=== PATIENT | male | born 1955 | race Two or more races ===

== ENCOUNTER 2016-12-23 13:56 | Emergency (ER) | payer MEDICAID, OTHER ==
[2016-12-23] MEDS ORDERED: Sodium Chloride 0.9% 10 ML Syringe FLUSH PRN (14:25)
[2016-12-23] MEDS ORDERED: HYDROmorphone 2 MG/ML Syringe IVPUSH ONE (14:25)
[2016-12-23] MEDS ORDERED: Ondansetron 4 MG/2 ML SDV IVPUSH ONE (14:25)
[2016-12-23] MEDS ORDERED: Sodium Chloride 0.9% 2.5 ML Syringe FLUSH PRN (14:25)
[2016-12-23] MEDS ORDERED: Sodium Chloride 0.9% 1,000 ML IV SCH (14:30)
--- NOTE | 2016-12-23 14:39 | EDM.PDOC ---
ED HPI GENERAL MEDICAL PROBLEM - General Chief Complaint: Gastrointestinal Problem Stated Complaint: ABDIMINAL PAIN Time Seen by Provider: 12/23/16 14:26 Source of Information: Reports: Patient History Limitations: Reports: No Limitations - History of Present Illness INITIAL COMMENTS - FREE TEXT/NARRATIVE: HISTORY AND PHYSICAL: History of present illness: Patient is a 61-year-old male who presents to the emergency room today with the understanding that he would be evaluated and treated by Dr. Lui for an incarerated hernia. Patient reports he has had this hernia for approximately 3 years. He has seen a surgeon in the past he told it would be repair for cosmetic purposes only. Yesterday he started having increased nausea with dry heaving, started to have abdominal pain near the umbilicus. Pain was not alleviated and presented to [facility] clinic in [facility]. At the clinic he had lab work completed in the two-view abdominal x-ray. Patient drove himself by private vehicle to our emergency room. Upon arrival patient is guarding his abdomen where there is an obvious large hernia which is the size of a basketball. She denies any chest pain, shortness of breath, fever, chills. Said he has had regular bowel pattern and urinating without difficulty. Last bowel movement was approximately 1:30 this morning and reports it was large loose stool. Last ate yesterday evening and drank some water approximately 2 hours ago. Patient has a past medical history of all obstruction, cardiomyopathy, COPD, CAD , reticulocyte valve replacement, pneumonia, hypertension, hyperlipidemia, proximal atrial fibrillation, aortic valve stenosis, systolic heart failure, and ventricular tachycardia Review of systems: As per history of present illness and below otherwise all systems reviewed and negative. Past medical history: As per history of present illness and as reviewed below otherwise noncontributory. Surgical history: As per history of present illness and as reviewed below otherwise noncontributory. Social history: No reported history of drug or alcohol abuse. Family history: As per history of present illness and as reviewed below otherwise noncontributory. Physical exam: Gen.: Nontoxic appearing 61-year-old male who appears in mild distress. Able to speak in full sentences without shortness of breath. HEENT: Atraumatic, normocephalic, pupils reactive, negative for conjunctival pallor or scleral icterus, mucous membranes moist, throat clear, neck supple, nontender, trachea midline. Lungs: Clear to auscultation, breath sounds equal bilaterally, chest nontender. Heart: S1S2, regular, negative for clicks, rubs, or JVD. Abdomen: Large abdominal hernia noted which is midline and the approximate size of a basketball. This is soft to palpation and more firm going towards the umbilicus. Patient reports the umbilicus area is tender to palpation. Negative for masses. Negative for costovertebral tenderness. Pelvis: Stable nontender. Genitourinary: Deferred. Rectal: Deferred. Extremities: Atraumatic, negative for cords or calf pain. Neurovascular unremarkable. Neuro: Awake, alert, oriented. Cranial nerves II through XII unremarkable. Cerebellum unremarkable. Motor and sensory unremarkable throughout. Exam nonfocal. 1430- Dr. Mata was paged at this time. Patient told the nursing staff that he has not taking any of his cardiac medications for several months. Instead he uses marijuana 2-3 times daily. 1515: Dr. Mata has been in the ER evaluating the patient and discussing care plan. He would like to perform a CT scan of the abdomen and pelvis with contrast and reevaluate transfer/disposition with that results. Patient has been made aware of that. Dr. Mata will do a formal consult on this patient as well. 1620- Dr. Mata was informed that the CT shows some free air. Dr. Mata reviewed the CT himself with Dr. Betancourt. According to Dr. Mata he offered to operate here, the patient states he prefers to go to [place] and will be flown there for further care. Please see Dr. Mata's dictation/note for further information. Dr. Mata will speak with the accepting surgeon. We will help facilitate transfer. IV Levaquin and Flagyl have been ordered per Dr. Mata's request Diagnostics: Sending facility ([facility]) did a CBC, CMP, UA, amylase, lipase and a 2 view abdominal x-ray prior to patients arrival- these diagnostics were reviewed by me. CT scan of the abdomen and pelvis Therapeutics: IV fluid at 125 MLS per hour, Zofran, Dilaudid Levaquin and Flagyl Impression: Incarcerated hernia with perforation Definitive disposition and diagnosis as appropriate pending reevaluation and review of above. Duration: Chronic (3 years), Getting Worse (Since yesterday afternoon) Abdomen Pain Score (Numeric/FACES): 8 - Related Data Allergies Allergy/AdvReac Type Severity Reaction Status Date / Time No Known Allergies Allergy Verified 12/23/16 14:11 Home Meds: Home Meds Aspirin 81 mg PO 12/23/16 [History] Blackseed Oil 800 mg 12/23/16 [History] ED ROS GENERAL - Review of Systems Review Of Systems: ROS reveals no pertinent complaints other than HPI. ED EXAM, GENERAL - Physical Exam Exam: See Below (See dictation) Course - Vital Signs Last Recorded V/S: Last Vital Signs Temp 37.3 C 12/23/16 16:27 Pulse 88 12/23/16 16:27 Resp 16 12/23/16 16:27 BP 148/91 H 12/23/16 16:27 Pulse Ox 95 12/23/16 16:27 - Orders/Labs/Meds Orders: Active Orders 24 hr Category Date Time Status Cardiac Monitoring [RC] . DIRECTED Care 12/23/16 14:24 Active EKG Documentation Completion [RC] STAT Care 12/23/16 14:24 Active Notify Provider Consults [RC] ASDIRECTED Care 12/23/16 15:23 Active Oxygen Therapy, ED [RC] ASDIRECTED Care 12/23/16 14:24 Active Consult to Physician [CONS] Stat Cons 12/23/16 15:23 Active Levofloxacin/Dextrose 5%-Water [Levaquin in D5W 500 MG/ Med 12/23/16 16:39 Ordered 100 ML] 500 mg Premix Bag 1 bag IV ONETIME Sodium Chloride 0.9% [Normal Saline] 1,000 ml Med 12/23/16 14:30 Active IV ASDIRECTED Sodium Chloride 0.9% [Saline Flush] Med 12/23/16 14:25 Active 10 ml FLUSH ASDIRECTED PRN Sodium Chloride 0.9% [Saline Flush] Med 12/23/16 14:25 Active 2.5 ml FLUSH ASDIRECTED PRN metroNIDAZOLE/Normal Saline [Flagyl 500 MG in NS 100 ML Med 12/23/16 16:39 Ordered ] 500 mg Premix Bag 1 bag IV ONETIME Saline Lock Insert [OM.PC] Stat Oth 12/23/16 14:23 Ordered Medication Orders Sodium Chloride (Normal Saline) 1,000 mls @ 125 mls/hr IV ASDIRECTED [facility] Last Admin: 12/23/16 14:54 Dose: 125 mls/hr Sodium Chloride (Saline Flush) 10 ml FLUSH ASDIRECTED PRN PRN Reason: Keep Vein Open Sodium Chloride (Saline Flush) 2.5 ml FLUSH ASDIRECTED PRN PRN Reason: Keep Vein Open Meds: Medications Generic Name Dose Route Start Last Admin Trade Name Freq PRN Reason Stop Dose Admin Sodium Chloride 1,000 mls @ 125 mls/hr 12/23/16 14:30 12/23/16 14:54 Normal Saline IV 125 mls/hr ASDIRECTED LASHAY Administration Sodium Chloride 10 ml 12/23/16 14:25 Saline Flush FLUSH ASDIRECTED PRN Keep Vein Open Sodium Chloride 2.5 ml 12/23/16 14:25 Saline Flush FLUSH ASDIRECTED PRN Keep Vein Open Discontinued Medications Generic Name Dose Route Start Last Admin Trade Name Freq PRN Reason Stop Dose Admin Hydromorphone HCl 1 mg 12/23/16 14:25 12/23/16 14:49 Dilaudid IVPUSH 12/23/16 14:26 1 mg ONETIME ONE Administration Iopamidol 100 ml 12/23/16 15:59 12/23/16 16:02 Isovue Multipack-370 (76%) IVPUSH 12/23/16 16:00 100 ml ONETIME STA Administration Ondansetron HCl 4 mg 12/23/16 14:25 12/23/16 14:48 Zofran IVPUSH 12/23/16 14:26 4 mg ONETIME ONE Administration Departure - Departure Time of Disposition: 16:44 Disposition: DC/Tfer to Acute Hospital 02 Clinical Impression: Incarcerated hernia - Discharge Information Referrals: PCP,None [Primary Care Provider] - Forms: ED Department Discharge - My Orders Last 24 Hours: My Active Orders 12/23/16 14:23 Saline Lock Insert [OM.PC] Stat 12/23/16 14:24 Cardiac Monitoring [RC] . DIRECTED EKG Documentation Completion [RC] STAT Oxygen Therapy, ED [RC] ASDIRECTED 12/23/16 14:25 Sodium Chloride 0.9% [Saline Flush] 10 ml FLUSH ASDIRECTED PRN Sodium Chloride 0.9% [Saline Flush] 2.5 ml FLUSH ASDIRECTED PRN 12/23/16 14:30 Sodium Chloride 0.9% [Normal Saline] 1,000 ml IV ASDIRECTED 12/23/16 15:23 Notify Provider Consults [RC] ASDIRECTED Consult to Physician [CONS] Stat 12/23/16 16:39 Levofloxacin/Dextrose 5%-Water [Levaquin in D5W 500 MG/100 ML] 500 mg Premix Bag 1 bag IV ONETIME metroNIDAZOLE/Normal Saline [Flagyl 500 MG in NS 100 ML] 500 mg Premix Bag 1 bag IV ONETIME - Assessment/Plan Last 24 Hours: My Active Orders 12/23/16 14:23 Saline Lock Insert [OM.PC] Stat 12/23/16 14:24 Cardiac Monitoring [RC] . DIRECTED EKG Documentation Completion [RC] STAT Oxygen Therapy, ED [RC] ASDIRECTED 12/23/16 14:25 Sodium Chloride 0.9% [Saline Flush] 10 ml FLUSH ASDIRECTED PRN Sodium Chloride 0.9% [Saline Flush] 2.5 ml FLUSH ASDIRECTED PRN 12/23/16 14:30 Sodium Chloride 0.9% [Normal Saline] 1,000 ml IV ASDIRECTED 12/23/16 15:23 Notify Provider Consults [RC] ASDIRECTED Consult to Physician [CONS] Stat 12/23/16 16:39 Levofloxacin/Dextrose 5%-Water [Levaquin in D5W 500 MG/100 ML] 500 mg Premix Bag 1 bag IV ONETIME metroNIDAZOLE/Normal Saline [Flagyl 500 MG in NS 100 ML] 500 mg Premix Bag 1 bag IV ONETIME
[2016-12-23] MEDS ORDERED: Iopamidol 755 MG/ML 500 ML Multipack Bottle IVPUSH STA (15:59)
--- NOTE | 2016-12-23 16:32 | CT ---
CT of the abdomen and pelvis with contrast. HISTORY: Pain TECHNIQUE: Axial CT images were obtained of the abdomen and pelvis following administration of 100 mL of Isovue-370 in the right antecubital fossa without complication. Coronal and sagittal reconstructi ons obtained. FINDINGS: There is atelectasis within the right middle lobe. The liver, spleen, adrenal glands, and pancreas appear normal. The gallbladder is normal. There is no bulky retroperitoneal lymphadenopathy or abdominal ascites. The kidneys enhance and function symmetrically. Mild prominence of the left renal pelvis and calyces extending to the UPJ. There is diastases of the abdominal rectus musculature. There are however prominently dilated loops o f colon within the region of the right wrist is with multiple small pockets of free air noted. Exact source of free air cannot be determined however likely originates from the dilated colon. There is na rrowing of the colon adjacent to the dilated loops, however this does not appear directly related to the diastases and may represent underlying lesions. The distal colon is predominantly decompressed. A nastomosis sutures are also noted within the right lower quadrant. The urinary bladder is normal. Tra ce free pelvic fluid. No bulky pelvic lymphadenopathy. Prostate is mildly prominent. No suspicious osseous abnormalities identified. IMPRESSION: 1. Probable closed loop mid colonic obstruction within the region of the diastases of the abdominal m usculature, on the right. There is a moderate amount of free air suggesting perforation. There appear s to be 2-lead points along the right aspect of the abdomen which may be secondary to adhesions. 2. Mild prominence of the of the left renal collecting system to the UPJ.
[2016-12-23] MEDS ORDERED: metroNIDAZOLE/Normal Saline 500 MG in Premix Bag 1 BAG IV ONE (16:39)
[2016-12-23] MEDS ORDERED: Levofloxacin/Dextrose 5%-Water 500 MG in Premix Bag 1 BAG IV ONE (16:39)
[2016-12-23] MEDS ORDERED: Lactated Ringers 1,000 ML IV SCH (16:45)
[2016-12-23 17:28] VITALS: BP 146/87
--- NOTE | 2016-12-23 23:44 | CONS ---
DATE OF CONSULTATION: 12/23/2016 DATE OF : 1955 PRIMARY CARE PHYSICIAN: None PCP HISTORY OF PRESENT ILLNESS: The patient is a 61-year-old gentleman, who was seen in outside facility for incisional hernia with pain. The patient remarked that patient had this incisional hernia for about three and a half years, but started to have pain in the emergency room for further management. The patient remarked the pain is 8/10 in abdomen, and usually the hernia patient can push back and right now cannot. He denied nausea and vomiting, but the patient is not hungry now. PAST MEDICAL HISTORY: Significant for 1. Cardiac surgery done in the past and with complication. 2. Ischemic bowel requiring bowel resection three years ago. 3. Also, COPD. 4. Pacemaker. PAST SURGICAL HISTORY: 1. Incisional hernia. 2. Bowel resection. ALLERGIES: Please refer to nursing notes for details. MEDICATIONS: Please refer to nursing notes for details. PHYSICAL EXAMINATION: GENERAL: Alert, awake, and in mild acute distress. HEENT: Normocephalic and atraumatic. Sclerae are anicteric. LUNGS: Clear to auscultation. HEART: Regular rate and rhythm. ABDOMEN: Protuberance with the hernia as big as a small volleyball, and trying to palpate, patient is in a lot of pain. The hernia is above the umbilicus. LABORATORY DATA AND DIAGNOSTIC STUDIES: White count from outside hospital is 15.6. Workup included CAT scan, and CAT scan official reading is not there, but Radiology called patient has free air, not likely from the hernia, but from possible adherence from prior surgery. IMPRESSION AND PLAN: Perforated viscus with probably requiring surgery and proposed to the patient regarding management, surgery, and patient with pacemaker, with chronic obstructive pulmonary disease, and with multiple surgeries, and also had cardiac issues, the patient probably will not be able to extubate after surgery. The patient requested to be transferred to a tertiary care center, and discussed with surgeon in [place] and they accepted transfer. The patient is being transferred to [place]. SALMA ZAMORA /[id number] CYDNEY
== END 2016-12-23 17:28 ==
LOC: MW.ED 13:56
DX: K46.0 Unspecified abdominal hernia with obstruction, without gangrene (principal); I25.10 Atherosclerotic heart disease of native coronary artery without angina pectoris; I11.0 Hypertensive heart disease with heart failure; I50.20 Unspecified systolic (congestive) heart failure; E78.5 Hyperlipidemia, unspecified; J44.9 Chronic obstructive pulmonary disease, unspecified; Z79.82 Long term (current) use of aspirin; Z87.01 Personal history of pneumonia (recurrent)
CPT/HCPCS: 74177; 93005; 96361; 96365; 96368; 96375; 99285; J1170; J1956; J2405; J7040; J7120; Q9967; 99284